=== PATIENT | female | born 2005 | race Caucasian/White ===

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

== ENCOUNTER 2025-01-30 09:45 | Emergency (ER) | payer OTHER ==
[~2025-01-30] VITALS: Ht 157.4 cm; Wt 77.1 kg
[2025-01-30] MEDS ORDERED: NAPROXEN 250 MG TAB PO ONE (10:45)
[2025-01-30] MEDS ORDERED: NAPROSYN500 MG PO (10:47)
== END 2025-01-30 10:56 | disposition home or self-care (01) ==
LOC: ED 09:45
DX: S63.502A Unspecified sprain of left wrist, initial encounter (principal); X58.XXXA Exposure to other specified factors, initial encounter; Y93.89 Activity, other specified; Y92.89 Other specified places as the place of occurrence of the external cause; Y99.8 Other external cause status

== ENCOUNTER 2025-04-25 22:10 | Emergency (ER) | payer OTHER ==
[~2025-04-25] VITALS: Ht 160 cm; Wt 86.2 kg
[~2025-04-25 22:10] MED LIST changes: +NAPROSYN500 MG PO
[2025-04-25] MEDS ORDERED: ALBUTEROL SULF HFA 1 (22:20)
[2025-04-25] MEDS ORDERED: OMEPRAZOLE MAGN20 MG PO (22:20)
[2025-04-25 23:06] LABS: MEAN CELL VOLUME 85.0 fl (81.0-99.0); MEAN CORPUSCULAR HGB 28.5 pg (27.0-31.0); MEAN PLATELET VOLUME 9.0 fl (9.6-12.3); NUCLEATED RED BLOOD CELL 0.0 % (0.0-0.0); NUCLEATED RED BLOOD CELL 0.0 10*3/uL (0.0-0.0); PLATELET COUNT AUTOMATED 356 10*3/uL (130-400); RED CELL DISTRI WIDTH 12.4 % (0-14.5)
[2025-04-25 23:27] LABS: BUN 8 mg/dl (9-23); SGPT/ALT 13 U/L (5-49)
[2025-04-25 23:29] LABS: BILIRUBIN Negative (Negative); BLOOD Negative (Negative); CLARITY Cloudy (Clear); COLOR Dark Yellow (Yellow); KETONE 1+ (Negative); LEUKO ESTERASE 1+ (Negative); NITRITE Negative (Negative); PH 5.5 (4.5-8.0); SPECIFIC GRAVITY >= 1.030 (1.001-1.030); UROBILINOGEN 1.0 E.U./dl (0.0-1.0)
[2025-04-25 23:43] LABS: MANUAL DIFF REFLEX YES
[2025-04-25 23:45] LABS: PLATELET SUFFICIENCY NORMAL (NORMAL)
[2025-04-26] LABS: EPITHELIAL CELLS 41-50
[2025-04-26 00:01] LABS: BACTERIA 2+; WBC 16-20 wbc/hpf (0-5)
[2025-04-26] MEDS ORDERED: CIPRO500 MG PO (00:46)
[2025-04-26] MEDS ORDERED: Ciprofloxacin Hydrochloride 500 MG TAB PO ONE (00:50)
== END 2025-04-26 01:05 | disposition home or self-care (01) ==
LOC: ED 22:10
PROVIDERS: Emergency Medicine
DX: N39.0 Urinary tract infection, site not specified (principal); K30 Functional dyspepsia; Z79.899 Other long term (current) drug therapy

== ENCOUNTER 2025-05-08 20:58 | Emergency (ER) | payer OTHER ==
[~2025-05-08] VITALS: Ht 162.6 cm; Wt 111.1 kg
[~2025-05-08 20:58] MED LIST changes: +ALBUTEROL SULF HFA 1; +CIPRO500 MG PO; +OMEPRAZOLE MAGN20 MG PO
[2025-05-08] MEDS ORDERED: Cyclobenzaprine Hydrochlorid 10 MG TAB PO ONE (22:45)
[2025-05-08] MEDS ORDERED: EC NAPROSYN,NA500 MG PO (22:46)
[2025-05-08] MEDS ORDERED: CYCLOBENZAPRINE5 M3 PO (22:46)
== END 2025-05-08 23:18 | disposition home or self-care (01) ==
LOC: ED 20:58
DX: S29.011A Strain of muscle and tendon of front wall of thorax, initial encounter (principal); Z79.899 Other long term (current) drug therapy; X58.XXXA Exposure to other specified factors, initial encounter; Y93.89 Activity, other specified; Y92.89 Other specified places as the place of occurrence of the external cause; Y99.8 Other external cause status

== ENCOUNTER 2025-05-19 09:20 | Emergency (ER) | payer OTHER ==
[~2025-05-19] VITALS: Wt 101.2 kg
[~2025-05-19 09:20] MED LIST changes: +CYCLOBENZAPRINE5 M3 PO; +EC NAPROSYN,NA500 MG PO
[2025-05-19] MEDS ORDERED: NAPROSYN500 MG PO (10:16)
== END 2025-05-19 10:30 | disposition home or self-care (01) ==
LOC: ED 09:20
DX: S93.402A Sprain of unspecified ligament of left ankle, initial encounter (principal); F90.9 Attention-deficit hyperactivity disorder, unspecified type; W01.0XXA Fall on same level from slipping, tripping and stumbling without subsequent striking against object, initial encounter; Y93.89 Activity, other specified; Y92.89 Other specified places as the place of occurrence of the external cause; Y99.8 Other external cause status